=== PATIENT | male | born 1995 | race Caucasian/White ===

== ENCOUNTER 2017-05-05 22:49 | Observation (INO) | payer OTHER ==
[~2017-05-05] VITALS: Ht 188 cm; Wt 93.6 kg
[2017-05-05 23:20] LABS: HEMATOCRIT 45.6 % (38.0-50.0); HEMOGLOBIN 15.5 G/DL (12.5-16.6); MCH 28.8 PG (29.0-34.0); MCV 84.8 FL (86-99); PLATELET COUNT 162 K/uL (156-360); RBC DIS.WIDTH-CV 13.5 % (11.8-14.6); RBC DIS.WIDTH-SD 42.1 % (39-53); RED BLOOD COUNT 5.38 M/uL (4.00-5.50); WHITE BLOOD COUNT 14.1 K/uL (4.1-10.2)
[2017-05-05 23:29] LABS: ALBUMIN 3.8 g/dL (3.2-4.8); CHLORIDE 102 mEq/L (99-109); POTASSIUM 4.2 mEq/L (3.7-5.4); SODIUM 137 mEq/L (136-147)
[2017-05-05 23:31] LABS: GLUCOSE 111 mg/dL (70-99)
[2017-05-05 23:33] LABS: TOTAL BILIRUBIN 2.1 mg/dL (0.0-1.0)
[2017-05-05 23:35] LABS: ALKALINE PHOSPHATASE 636 IU/L (3-129); CREATININE 1.1 mg/dL (0.6-1.3); GFR ESTIMATE (CALCULATED) > 59 mL/min/ (58.99-99999)
[2017-05-05 23:37] LABS: AST (GOT) 335 IU/L (2-34); UREA NITROGEN (BUN) 12 mg/dL (9-23)
[2017-05-05 23:38] LABS: ALT (GPT) 463 IU/L (3-49)
[2017-05-06] LABS: ABS NEUTROPHIL COUNT 2.7; ATYPICAL LYMPHOCYTE 28.9 %; BURR CELLS 1+; EOSINOPHIL ABS CT 0; LYMPHOCYTES 42.1 % (15.0-45.0); MONOCYTES 8.8 % (0-9.0); MYELOCYTES 0.9 %; PLAT.SUFFICIENCY ADEQUATE; SEG.NEUTROPHILS 19.3 % (46.0-76.0)
[2017-05-06 02:38] LABS: LIPASE 39 U/L (1.0-51.0)
[2017-05-06 02:39] LABS: CREATINE KINASE 27 IU/L (1-294)
[2017-05-06 05:15] LABS: MONOSPOT (MONONUCLEOSIS SEROL) POSITIVE
[2017-05-06 08:10] VITALS: BP 134/68
[2017-05-06 08:45] LABS: HEMATOCRIT 41.6 % (38.0-50.0); HEMOGLOBIN 13.9 G/DL (12.5-16.6); MCH 28.5 PG (29.0-34.0); MCHC 33.4 G/DL (30.0-36.0); MCV 85.2 FL (86-99); NRBC (%) 0.6 /100 WBC (0-0); PLATELET COUNT 155 K/uL (156-360); RBC DIS.WIDTH-CV 13.8 % (11.8-14.6); RBC DIS.WIDTH-SD 43.4 % (39-53); RED BLOOD COUNT 4.88 M/uL (4.00-5.50); WHITE BLOOD COUNT 11.9 K/uL (4.1-10.2)
[2017-05-06 09:18] LABS: ALBUMIN 3.6 G/DL (3.2-4.8); ALKALINE PHOSPHATASE 497 IU/L (3-129); ALT (GPT) 332 IU/L (3-49); AST (GOT) 225 IU/L (2-34); CHLORIDE 104 MEQ/L (99-109); GFR ESTIMATE (CALCULATED) > 59 mL/min/ (58.99-99999); GLUCOSE 144 mg/dL (70-99); POTASSIUM 4.2 MEQ/L (3.7-5.4); SODIUM 138 MEQ/L (136-147); UREA NITROGEN (BUN) 10 mg/dL (9-23)
[2017-05-06 09:30] LABS: TOTAL BILIRUBIN 1.4 MG/DL (0.0-1.0); TOTAL PROTEIN 5.9 G/DL (6.4-8.3)
[2017-05-06 11:34] LABS: HEPATITIS B SURFACE ANTIGEN Nonreactive
[2017-05-06 11:35] LABS: HEPATITIS C ANTIBODY Nonreactive
[2017-05-06 11:36] LABS: ANTI-HEPATITIS A VIRUS (IGM) Nonreactive
[2017-05-06 11:37] LABS: ANTI-HEPATITIS B CORE (IGM) Nonreactive
[2017-05-06] MEDS ORDERED: AMOX TR-K CLV1 EAC4 PO (14:29)
== END 2017-05-06 15:27 | disposition home or self-care (01) ==
LOC: EME 22:49 → 5EAST 05-06 04:38 → EDOF 05-06 04:38 → 5EAST 05-06 04:38 → ENRESERV 05-06 04:45 → 5EAST 05-06 05:24
PROVIDERS: Emergency Medicine; Hospitalist
DX: J02.0 Streptococcal pharyngitis (principal); R74.0 Nonspecific elevation of levels of transaminase and lactic acid dehydrogenase [LDH]; R79.89 Other specified abnormal findings of blood chemistry; R16.1 Splenomegaly, not elsewhere classified; R42 Dizziness and giddiness; R11.2 Nausea with vomiting, unspecified; R10.13 Epigastric pain
CPT/HCPCS: 74177; 76705; 80053; 80074; 82550; 83690; 85025; 85027; 86308; 86664; 86665; 87040; 99281; 99285; G0378; J0696; J7030

== ENCOUNTER 2017-08-19 06:58 | Day surgery (SDC) | payer OTHER ==
[~2017-08-19] VITALS: Ht 188 cm; Wt 92.9 kg
[~2017-08-19 06:58] MED LIST: AMOX TR-K CLV1 EAC4 PO; CELEXA20 MG PO
[2017-08-19 07:15] VITALS: BP 131/74
[2017-08-19 10:55] VITALS: BP 145/79
[2017-08-19 11:36] VITALS: BP 134/68
== END 2017-08-19 11:54 | disposition home or self-care (01) ==
LOC: SDC 06:58
DX: J35.03 Chronic tonsillitis and adenoiditis (principal)
CPT/HCPCS: J0131; J0330; J1100; J1170; J2250; J2405; J3010

== ENCOUNTER 2017-08-26 07:18 | Observation (INO) | payer OTHER ==
[~2017-08-26] VITALS: Ht 188 cm; Wt 93.0 kg
[~2017-08-26 07:18] MED LIST changes: -CELEXA20 MG PO; +ESCITALOPRAM OX20 MG PO
[2017-08-26 08:20] LABS: BASOPHIL (%) 0.3 % (0-1); EOSINOPHIL (%) 0.5 % (0-5); HEMATOCRIT 43.6 % (38.0-50.0); HEMOGLOBIN 14.9 G/DL (12.5-16.6); IMMATURE GRANULOCYTE (%) 0.4 % (0.0-0.7); LYMPHOCYTE COUNT 2.1 K/uL (1.0-2.8); MCH 28.4 PG (29.0-34.0); MCHC 34.2 G/DL (30.0-36.0); MCV 83.2 FL (86-99); MONOCYTE (%) 11.6 % (3-12); MONOCYTE COUNT 0.9 K/uL (0-0.8); NEUTROPHIL (%) 58.2 % (45-76); NEUTROPHIL COUNT 4.3 K/uL (1.8-6.4); PLATELET COUNT 209 K/uL (156-360); RBC DIS.WIDTH-SD 36.5 % (39-53); RED BLOOD COUNT 5.24 M/uL (4.00-5.50); WHITE BLOOD COUNT 7.4 K/uL (4.1-10.2)
[2017-08-26 08:32] LABS: CHLORIDE 102 mEq/L (99-109); POTASSIUM 4.1 mEq/L (3.7-5.4); SODIUM 138 mEq/L (136-147)
[2017-08-26 08:34] LABS: GLUCOSE 114 mg/dL (70-99)
[2017-08-26 08:38] LABS: CREATININE 1.1 mg/dL (0.6-1.3); GFR ESTIMATE (CALCULATED) > 59 mL/min/ (58.99-99999)
[2017-08-26 08:39] LABS: UREA NITROGEN (BUN) 13 mg/dL (9-23)
[2017-08-26] MEDS ORDERED: HYDROCODON-ACE1 EAC7 PO (09:14)
[2017-08-26] MEDS ORDERED: AMOXICILLIN500 MG PO (09:15)
[2017-08-26] MEDS ORDERED: AMPHETAMINE SAL20 MG PO (09:20)
[2017-08-26] MEDS ORDERED: ADVIL,NUPRIN,M200 MG PO (09:22)
[2017-08-26 10:41] VITALS: BP 125/68
[2017-08-26 16:10] VITALS: BP 128/59
[2017-08-26 20:54] VITALS: BP 136/74
[2017-08-27] VITALS: BP 126/70
== END 2017-08-27 07:39 | disposition home or self-care (01) ==
LOC: EME 07:18 → ENRESERV 08:31 → EDOF 08:36 → ENRESERV 08:53 → 4SOUTH 09:45 → CANRESERV 09:49 → ENRESERV 09:49 → CANRESERV 09:52 → ENRESERV 09:52 → 4SOUTH 09:55
PROVIDERS: Emergency Medicine
PROC: 0W337ZZ Control Bleeding in Oral Cavity and Throat, Via Natural or Artificial Opening (ICD-10-PCS; principal; 2017-08-26)
DX: J95.830 Postprocedural hemorrhage of a respiratory system organ or structure following a respiratory system procedure (principal); F32.9 Major depressive disorder, single episode, unspecified; F90.9 Attention-deficit hyperactivity disorder, unspecified type
CPT/HCPCS: 80048; 85025; 99281; 99284; G0378; J0131; J0330; J2250; J2405; J3010; J7030